=== PATIENT | male | born 1960 | race Caucasian/White ===

== ENCOUNTER → 2018-08-24 | Outpatient (CLI) | payer OTHER ==
--- NOTE | 2018-08-24 12:22 | PCVCIMAG ---
APPROVED REPORT Study performed: 08/24/2018 08:24:24 EXAM: Comprehensive 2D, Doppler, and color-flow Echocardiogram Patient Location: Echo lab Status: routine BSA: 1.54 HR: 74 bpmBP: 120/80 mmHg Rhythm: NSR Other Information Study Quality: Adequate Risk Factors: Cardiac Risk Factors: Hyperlipidemia Indications Palpitations 2D Dimensions IVSd: 6.55 (7-11mm)LVOT Diam: 19.00 (18-24mm) LVDd: 35.87 mm PWd: 9.30 (7-11mm)Ascending Ao: 29.68 (22-36mm) LVDs: 22.31 (25-40mm) Left Atrium: 25.78 (27-40mm) Aortic Root: 25.75 mm LV Single Plane 4CH: 60.07 % LV Single Plane 2CH: 62.55 % Biplane EF: 61.1 % Volumes Left Atrial Volume (Systole) Single Plane 4CH: 33.58 mLSingle Plane 2CH: 27.52 mL LA ESV Index: 21.00 mL/m2 Aortic Valve AoV Peak Dario.: 1.34 m/s AO Peak Gr.: 7.13 mmHgLVOT Max P.76 mmHg LVOT Max V: 0.97 m/s AMADOU Vmax: 2.06 cm2 Mitral Valve E/A Ratio: 1.0 MV Decel. Time: 274.63 ms MV E Max Dario.: 0.86 m/s MV A Dario.: 0.88 m/s IVRT: 41.52 ms TDI E/Lateral E': 12.29E/Medial E': 14.33 Medial E' Dario.: 0.06 m/s Lateral E' Dario.: 0.07 m/s Pulmonary Valve PV Peak Dario.: 0.96 m/sPV Peak Gr.: 3.70 mmHg Pulmonary Vein P Vein S: 0.42 m/sP Vein A: 0.32 m/s P Vein D: 0.31 m/sP Vein A Dur.: 90.0 msec P Vein S/D Ratio: 1.35 Tricuspid Valve TR Peak Dario.: 2.32 m/sRAP Estimate: 7.00 mmHg TR Peak Gr.: 21.53 mmHg PA Pressure: 29.00 mmHg Left Ventricle The left ventricle is normal size. There is normal LV segmental wall motion. There is normal left ventricular wall thickness. Left ventricular systolic function is normal. The left ventricular ejection fraction is within the normal range. LVEF is 60-65%. Mild diastolic dysfunction is present (impaired relaxation pattern). Right Ventricle The right ventricle is normal size. The right ventricular systolic function is normal. Atria The left atrium size is normal. The right atrium size is normal. Aortic Valve The aortic valve is normal in structure. No aortic regurgitation is present. There is no aortic valvular stenosis. Mitral Valve The mitral valve is normal in structure. There is no mitral valve regurgitation noted. No evidence of mitral valve stenosis. Tricuspid Valve The tricuspid valve is normal in structure. Mild tricuspid regurgitation. Pulmonary artery pressure is 25 mmHg. Pulmonic Valve The pulmonary valve is normal in structure. Trace pulmonic regurgitation. Great Vessels The aortic root is normal in size. IVC is normal in size and collapses >50% with inspiration. Pericardium There is no pericardial effusion. <Conclusion> Left ventricular systolic function is normal. There is normal LV segmental wall motion. LVEF is 60-65%. Mild diastolic dysfunction The aortic valve is normal in structure. No aortic regurgitation or stenosis The mitral valve is normal in structure. No mitral valve regurgitation. Mild tricuspid regurgitation. Pulmonary artery pressure of 25 mmHg. There is no pericardial effusion.
== END | disposition home or self-care (01) ==
LOC: PCVCIMAG 08:43
PROVIDERS: ATTEND Internal Medicine
DX: I07.1 Rheumatic tricuspid insufficiency (principal); E78.5 Hyperlipidemia, unspecified
CPT/HCPCS: 93306